=== PATIENT | male | born 1940 | race Caucasian/White ===

== ENCOUNTER 2024-11-09 06:33 | Day surgery (SDC) | payer MEDICARE ==
[2024-11-09] VITALS (10 sets, daily range): BP systolic 131–171; BP diastolic 62–82; PULSE 65–76; RESP 11–18; TEMP 97.8; O2SAT 91–94
[~2024-11-09] VITALS: Ht 185.4 cm; Wt 129.0 kg
[~2024-11-09 06:33] MED LIST: ALLO300T2 PO; ASPI-611 PO; ATOR-2 PO; CALC-1051 PO; CINN500C16 PO; CLOP75TA34 PO; DOCU100C40 PO; EVOL140S2; FENO135C PO; FOLI1TAB27 PO; FURO10VI51 IV; GLUC1KIT2 SUBCUT; INSU100I27 SQ; INSU100V64 SQ; METH12VI2 SQ; METO5VIA IV; MULT-1085 PO; NITR4.1S2 TL; OMEG1CAP61 PO; OMEP40CA21 PO; POTA-206 PO; ZOF4I IV
[2024-11-09] MEDS ORDERED: CEFAZOLIN 3GM/DEXTROSE 150mL 150 ML IV ONE (07:06)
[2024-11-09 07:22] LABS: BASOPHILS % (AUTO) 0.7 % (0-1); EOSINOPHILS # (AUTO) 0.2 X10'3 (0-0.9); EOSINOPHILS % (AUTO) 4.2 % (0-6); HEMATOCRIT 45.8 % (42.0-52.0); LYMPHOCYTES # (AUTO) 1.3 X10'3 (1.1-4.8); LYMPHOCYTES % (AUTO) 25.2 % (21-51); MEAN CORPUSCULAR HEMOGLOBIN 32.2 PG (27.0-31.0); MEAN CORPUSCULAR HGB CONC 32.7 g/dL (33.0-36.5); MEAN CORPUSCULAR VOLUME 98.5 FL (78-98); MEAN PLATELET VOLUME 8.8 FL (7.4-10.4); MONOCYTES # (AUTO) 0.6 X10'3 (0-0.9); MONOCYTES % (AUTO) 11.6 % (2-12); NEUTROPHILS % (AUTO) 58.3 % (42-75); PLATELET COUNT 208 X10'3 (140-440); RED BLOOD COUNT 4.65 X10'6 (4.70-6.10); RED CELL DISTRIBUTION WIDTH 14.1 % (11.5-14.5); WHITE BLOOD COUNT 5.1 X10'3 (4.5-11.0)
--- NOTE | 2024-11-09 07:27 | ELECTROCARDIOGRAPH REPORT ---
[facility] Test Date: 2024-11-09 Test Time: 07:23:46 Pat Name: SEAN HALL Department: [facility] Patient ID: [facility]-[id number] Room: Gender: M Mason Helper: : 1940 Requested By: CITLALY KUO Order Number: [id number] Reading MD: Dr. Moses Wolf Measurements Intervals [place] Rate: 72 P: -70 [place]: 144 QRS: -40 QRSD: 129 T: 58 QT: 426 QTc: 467 Interpretive Statements Ectopic atrial rhythm Left bundle branch block Electronically Signed On 11-09-2024 18:51:[address] Moses Wolf Please click the below link to view image of tracing.
[2024-11-09 07:31] LABS: ALBUMIN 3.5 G/DL (3.4-5.0); ANION GAP 10 (8-16); BLOOD UREA NITROGEN 24 MG/DL (7-18); BUN/CREATININE RATIO 17.4 (10.0-20.0); CALCIUM 8.8 MG/DL (8.5-10.1); CHLORIDE 103 MMOL/L (99-107); CREATININE 1.38 MG/DL (0.60-1.10); GLUCOSE 108 MG/DL (70-104); MAGNESIUM 2.1 MG/DL (1.5-2.4); PROTHROMBIN TIME 10.7 SECONDS (9.0-12.0); SODIUM 140 MMOL/L (135-145); TOTAL CARBON DIOXIDE 26.6 MMOL/L (24-32); eCRCL 45 ML/MIN; eGFR 49 ML/MIN
[2024-11-09] MEDS: VANCOMYCIN/WATER FOR INJ (PEG) 1.5GM/300 ML IVPB IV ONE (07:46)
[2024-11-09] MEDS: normal saline 1000ml 1,000 ML IV SCH (07:46)
[2024-11-09] MEDS ORDERED: FOLI0.4T14 PO (08:04)
[2024-11-09] MEDS ORDERED: ROSU40TA89 PO (08:16)
[2024-11-09] MEDS ORDERED: NITR0.4T48 PO (08:16)
[2024-11-09] MEDS ORDERED: MAGN500C4 PO (08:17)
[2024-11-09] MEDS ORDERED: RYT225T PO (08:17)
[2024-11-09] MEDS ORDERED: LISI5TAB22 PO (08:17)
[2024-11-09] MEDS ORDERED: FURO20TA4 PO (08:17)
[2024-11-09] MEDS ORDERED: OMEG10006 PO (08:17)
[2024-11-09] MEDS ORDERED: POTA99CA PO (08:17)
[2024-11-09] MEDS ORDERED: EMPA25TA PO (08:17)
[2024-11-09] MEDS ORDERED: EZET10TA48 PO (08:17)
[2024-11-09] MEDS ORDERED: LIDOCAINE 2%/EPI 1:100,000 inj. Multi-dose 20 ML VIAL ONE (08:53)
[2024-11-09] MEDS ORDERED: vancomycin 1,000mg inj ONE (08:53)
[2024-11-09] MEDS ORDERED: midazolam 1 mg/ML 2ml injection ONE ×2 (08:53→09:41)
[2024-11-09] MEDS ORDERED: fentaNYL/PF 50MCG/1 ML 2ML syringe ONE (08:53)
[2024-11-09] MEDS ORDERED: ceFAZolin 1000mg inj ONE (09:31)
--- NOTE | 2024-11-09 10:45 | CARDIOLOGY REPORT ---
DATE OF SERVICE: 11/09/2024 DICTATING PHYSICIAN: CITLALY KUO DO CARDIAC CATHETERIZATION REPORT REFERRING PHYSICIAN: Franco Gage MD. PROCEDURES PERFORMED: * Removal of existing pacemaker pulse generator. * Pacemaker pocket revision. * Implant of new pacemaker pulse generator. PREOPERATIVE DIAGNOSES: * Symptomatic bradycardia. * Pulse generator at the recommended replacement time. POSTOPERATIVE DIAGNOSES: * Symptomatic bradycardia. * Pulse generator at the recommended replacement time. CLINICAL HISTORY: This 84-year-old man is status post pacemaker placement in 08/2014. The generator is now at the point of needing to be replaced. ANESTHESIA: Conscious sedation with local to skin. DEVICE REMOVED: Medtronic pulse generator, model #ADDR01 and serial #[id number]. EXISTING ELECTRODES: Medtronic right atrial electrode, model #5076 and serial #[id number]; Medtronic RV electrode, model #5076 and serial #[id number]. DEVICES IMPLANTED: Medtronic pulse generator, model #W3DR01 and serial #[id number]. DESCRIPTION OF PROCEDURE: The patient was sedated with fentanyl and Versed. She was then prepared and draped in the usual manner. The left pectoral region was liberally infiltrated with 1% lidocaine containing a 1:100,000 mixture of epinephrine. The pacemaker pocket was opened by incising along the existing scar line. The generator capsule was opened and approximately 50% was removed. The pocket was enlarged in an inferolateral direction. The electrodes were switched over from the old to the new generator and together they were placed back in the pocket. The generator was suspended with an 0 Ethibond suture. The pocket was irrigated with a vancomycin antibiotic solution. The subcutaneous layer was closed with 3-0 Vicryl and the skin was approximated with 4-0 Monocryl. ESTIMATED BLOOD LOSS: Essentially nil. COMPLICATIONS: No complications. Initial Christophe parameters were as follows: Mode AAIR/DDDR/MVP LRL 60 PPM. Upper activity and upper tracking rate is 130 BPM. Paced AV delay 180 milliseconds. Sensed AV delay 150 milliseconds. Atrial amputation 3.5 volts, pulse width 0.4 milliseconds, sensitivity 0.3 millivolts. Right ventricular amplitude 2.75 volts, pulse with 0.8 milliseconds, and sensitivity 0.9 millivolts. CITLALY KUO DO TID: [id number] RECEIPT: [id number] JESSICA/PATRICIA
[2024-11-09] MEDS ORDERED: HYDROcodone/acetaminophen 10/325mg tab PO PRN (10:50)
[2024-11-09] MEDS ORDERED: HYDROcodone/acetaminophen 5mg/325mg tablet PO PRN (10:50)
== END 2024-11-09 12:30 | disposition home or self-care (01) ==
LOC: SSTAY O 06:33
PROVIDERS: ATTEND Internal Medicine Cardiovascular Disease
DX: Z45.010 Encounter for checking and testing of cardiac pacemaker pulse generator [battery] (principal); Z79.01 Long term (current) use of anticoagulants; Z79.899 Other long term (current) drug therapy; Z98.890 Other specified postprocedural states
CPT/HCPCS: 33228; 36415; 80048; 82948; 83735; 85025; 85610; 93005; 99152; 99153; C1785; J0690; J2250; J3010; J3370; J3372; J7030; Z7610